=== PATIENT | female | born 1985 | race Caucasian/White ===

== ENCOUNTER 2019-04-30 10:25 | Outpatient (CLI) | payer OTHER, SELFPAY ==
--- NOTE | ~2019-04-30 | US_ITS ---
US pelvic complete w TV DATE: 04/30/2019 11:11 INDICATION: Pelvic pain. Abdominal bloating. TECHNIQUE: Real-time imaging via transabdominal approach. The patient could not tolerate transvaginal probe. COMPARISON: None FINDINGS: The uterus measures approximately 6 cm height and 21 mm anteroposterior dimension, and appr oximately 3.7 cm transverse dimension. The central endometrial echo measures 5 mm anteroposterior dim ension. The ovaries are not detected. No pelvic mass or abnormal pelvic fluid collection is detected. IMPRESSION: No significant abnormality on transabdominal examination; ovaries were not visualized tra nsabdominally. Patient could not tolerate transvaginal examination. Reviewed, dictated and finalized at [facility]. Reviewed, dictated and finalized at [facility]. IMPRESSION: No significant abnormality on transabdominal examination; ovaries w ere not visualized transabdominally. Patient could not tolerate transvaginal examination.
== END 2019-04-30 10:26 | disposition home or self-care (01) ==
PROVIDERS: Visit Provider Obstetrics & Gynecology Gynecology
DX: R10.2 Pelvic and perineal pain (principal)
CPT/HCPCS: 74018; 76830; 76856

== ENCOUNTER 2019-04-30 10:37 | Outpatient (CLI) | payer OTHER, SELFPAY ==
--- NOTE | ~2019-04-30 | XR_ITS ---
XR abdomen/kub 1V DATE: 04/30/2019 11:18 INDICATION: Left lower quadrant abdominal pain, nausea, constipation. History of ulcerative colitis. TECHNIQUE: 2 supine AP views COMPARISON: None FINDINGS: There is a prominent amount of fecal material throughout most of the colon, consistent with clinical complaint of constipation. No bowel obstruction is evident. No visceromegaly or significant abnormal calcification is noted. There are bilateral calcified pelvic phleboliths. IMPRESSION: Prominent amount of fecal material throughout most of the colon, consistent with constipa tion; no bowel obstruction detected Reviewed, dictated and finalized at [facility]. Reviewed, dictated and finalized at [facility]. IMPRESSION: Prominent amount of fecal material throughout most of the colon, co nsistent with constipation; no bowel obstruction detected
== END 2019-04-30 10:38 | disposition home or self-care (01) ==
LOC: ANHIMG 10:39
PROVIDERS: Visit Provider Internal Medicine Gastroenterology
DX: K59.00 Constipation, unspecified (principal)
CPT/HCPCS: 74018

== ENCOUNTER 2020-01-24 00:59 | Outpatient (CLI) | payer OTHER, SELFPAY ==
[2020-01-24 18:51] LABS: SARS-CoV-2 RNA PCR Negative
== END 2020-01-24 01:00 | disposition home or self-care (01) ==
LOC: ANHCOVIDDT 00:59
PROVIDERS: Visit Provider Internal Medicine Critical Care Medicine
DX: R68.89 Other general symptoms and signs (principal); Z20.828 Contact with and (suspected) exposure to other viral communicable diseases
CPT/HCPCS: 87635; C9803; U0003

== ENCOUNTER 2020-01-26 09:00 | Outpatient (CLI) | payer OTHER, SELFPAY ==
--- NOTE | 2020-03-12 18:30 | WPDSLEEPSTUD ---
Sleep Study Date of Study: 01/26/20 Ordering Provider: Zoltan Ricci MD; primary care Lora Pham DO Interpreting Physician: Connie Reyes MD Sleep Study Type: Polysomnogram Height: 1.55 m Weight: 78.925 kg Body Mass Index: 32.8 Neck Circumference: 40.64 cm [place]: 13 Reason for Sleep Study Snoring, daytime sleepiness Sleep History Ольга Sam is a 34 year old female with fibromyalgia and ulcerative colitis referred by her pain specialist for sleep study. During the day she feels tired, has excessive daytime sleepiness and wakes herself up with her snoring. She has multiple nighttime awakenings with headaches throughout the day. She drinks 1 large caffeinated drink during the day. she has difficulty getting to sleep and staying asleep. She has been in insomniac for years. She has chronic pain and a broken foot. Sometimes she wakes up gasping for breath. Sometimes she feels like she is fainting, and this causes her to jump awake in fear. There is a family history of sleep issues with her father using CPAP for sleep apnea. Her mother also has insomnia and chronic pain. She has tried sleeping medications. She occasionally awakens from sleep feeling short of breath. She frequently awakens at night with heartburn, belching or coughing. She does take medications for this. She occasionally snores, and occasionally is loud enough that others complain about it. She constantly has trouble sleep with a cold. She occasionally wakes up gasping for breath at night. She constantly has breathing problems at night observed by others. She rarely sweats excessively at night. She frequently notices her heart pounding or beating irregularly at night and frequently falls asleep during the day. She occasionally falls asleep involuntarily. She frequently falls asleep while driving.. She does not fall asleep while exerting physical effort. She does not have loss of muscle tone with strong emotion. She constantly has daytime difficulties due to excessive sleepiness. She is disabled. She does not feel paralyzed on waking or falling asleep. She frequently has vivid dreamlike scenes upon awakening or falling asleep. She has occasionally afraid to go to sleep. She frequently has nightmares. She frequently remembers her dreams and frequently has racing thoughts. She constantly feels sad depressed and anxious. She frequently has muscular tension. She constantly notices parts of her body jerking and she constantly kicks at night. She occasionally has crawling and aching feelings in her legs. She frequently has leg pain during the night. She occasionally has morning jaw pain. She frequently grinds her teeth during sleep. She constantly is bothered by pain during the day, frequently awaken with pain at night. She constantly wakes up feeling stiff in the morning with sore achy muscles and pain in the neck and spine. she has difficulties with memory, concentration, fatigue, bowel disturbances, nightmares and headaches. She takes and acids regularly. She has no significant social life. There has been a 10 lb wt gain in the last year. Normal bedtime is 10:00 p.m. taking 3 hours or longer to fall asleep. She typically wakes up 4 times at night. She will go urinate, she might take [id number] medications, listen to his sleep apnea and watch TV if she cannot return to sleep. She wakes in the morning between 6 and 9:00 a.m. Weekend schedule is the same. she takes naps in the afternoon or evening. A short 15 minutes nap is not refreshing. She is usually drowsy in the morning for 3 hours or longer. She lives with her father, and her mother recently . Habits: Never smoked tobacco. Caffeine 1 soda per day. No alcohol. She does not use recreational drugs. [facility] Past Medical History Medical History Anxiety Arthritis Asthma Bipolar disorder Bulging disc Depression Fibrom
[2020-03-14 09:46] VITALS: BMI 32.8
== END 2020-01-26 09:01 | disposition home or self-care (01) ==
LOC: ANHCSM 09:00
PROVIDERS: Visit Provider Internal Medicine Critical Care Medicine
DX: G47.30 Sleep apnea, unspecified (principal); G47.10 Hypersomnia, unspecified
CPT/HCPCS: 95810

== ENCOUNTER 2022-04-03 10:00 | Outpatient (CLI) | payer OTHER, SELFPAY ==
--- NOTE | 2022-04-03 11:00 | NEURO_ITS ---
Impression: Patient reports a history of numbness in bilateral lower extremities. # Normal nerve conduction study. # Normal needle/EMG exam. # Clinical correlation recommended. Small fiber neuropathy cannot be excluded. Motor Nerve Conduction Lower Extremities Peroneal Nerve Conduction Velocity (m/sec) Terminal Latency (msec) Response Voltage(mV) Popliteal space-Ankle Ankle Extensor Dig Brevis Popliteal space Ankle Right 40-42 4.4 2-2 2 Left 44-43 4.4 1-2 2 Tibial Nerve Conduction Velocity (m/sec) Terminal Latency (msec) Response Voltage(mV) Popliteal space-Ankle Ankle-Extensor Dig Brevis Popliteal space Ankle Right 47 4.4 8 11 Left 45 4.0 8 8 F-waves Peroneal Nerve (ms) Tibial Nerve (ms) Right 53.7 52.7 Left 52.9 52.7 Sensory Nerve Conduction Lower Extremities Sural Nerve Stimulation Terminal Latency (msec) Ankle Response Voltage (uV) Ankle Response Velocity (m/sec) Right 3.9 7 43 Left 4.0 17 40 Superficial Peroneal Nerve Stimulation Terminal Latency (msec) Ankle Response Voltage (uV) Ankle Response Velocity (m/sec) Right 3.8 5 42 Left 3.7 9 43 Left Right Muscles Examined Fibrillation Fasciculation Scarcity Voltage Duration Left Right Left Right Left Right Left Right Left Right X X Ant Tibialis X X Gastroc X X Fibularis Long X X Flex Dig Long X X Ext Dig Brev Abd Hallucis Quadriceps Paraspinals MTDD
== END 2022-04-03 10:01 | disposition home or self-care (01) ==
LOC: ANHNEURO 10:08
DX: M79.2 Neuralgia and neuritis, unspecified (principal)
CPT/HCPCS: 95886; 95910